=== PATIENT | female | born 1990 | race African-American/Black ===

== ENCOUNTER 2019-01-14 20:24 | Emergency (ER) | payer MEDICAID ==
[~2019-01-14] VITALS: Ht 175.3 cm; Wt 72.0 kg
[2019-01-15 00:19] LABS: CLARITY URINE CLEAR (CLEAR); COLOR URINE YELLOW (YELLOW); KETONES URINE 1+ (NEGATIVE); LEUKOCYTE ESTERASE URINE 1+ (NEGATIVE); NITRITE URINE NEGATIVE (NEGATIVE); OCCULT BLOOD URINE NEGATIVE (NEGATIVE); PROTEIN URINE NEGATIVE (NEGATIVE); SPECIFIC GRAVITY URINE 1.008 (1.005-1.030); UROBILINOGEN URINE 0.2 E.U./dL (0.2-1.0)
[2019-01-15 00:19] LABS: BASOPHILS % 0.4 % (0.0-2.0); CHLORIDE 107 mEq/L (98-107); EOSINOPHILS % 0.9 % (0.0-5.0); HEMATOCRIT. 37.9 % (36.0-48.0); HEMOGLOBIN. 12.6 g/dL (12.0-16.0); LYMPHOCYTES % 40.4 % (20.0-50.0); MEAN CORPUSCULAR HEMOGLOBIN 29.3 pg (28.0-32.0); MEAN CORPUSCULAR VOLUME 88.3 fL (81.0-99.0); MEAN PLATELET VOLUME 7.8 fl (7.4-10.4); MONOCYTES % 8.8 % (2.0-8.0); NEUTROPHILS % 49.5 % (40.0-76.0); PLATELET 216 x1000/uL (130-400); RED BLOOD CELL COUNT 4.29 mill/uL (4.2-5.4); RED CELL DISTRIBUTION WIDTH 12.8 % (11.6-14.6)
[2019-01-15 00:25] LABS: ETHANOL BLOOD < 10 mg/dL
[2019-01-15 00:48] LABS: *BARBITURATES SCREEN URINE NEGATIVE (NEGATIVE); *BENZODIAZEPINES SCREEN URINE NEGATIVE (NEGATIVE)
[2019-01-15 00:49] LABS: METHADONE URINE SCREEN NEGATIVE (NEGATIVE)
[2019-01-15 00:50] LABS: *AMPHETAMINES SCREEN URINE NEGATIVE (NEGATIVE); CANNABINOID URINE SCREEN NEGATIVE (NEGATIVE); OPIATES URINE SCREEN NEGATIVE (NEGATIVE); PHENCYCLIDINE URINE SCREEN NEGATIVE (NEGATIVE)
[2019-01-15 00:51] LABS: *COCAINE SCREEN URINE NEGATIVE (NEGATIVE)
[2019-01-15 12:50] VITALS: BP 115/70
== END 2019-01-15 13:15 | disposition home or self-care (01) ==
LOC: ER 20:24
DX: N30.00 Acute cystitis without hematuria (principal); R03.0 Elevated blood-pressure reading, without diagnosis of hypertension; Z63.79 Other stressful life events affecting family and household; Z62.820 Parent-biological child conflict; Z86.59 Personal history of other mental and behavioral disorders
CPT/HCPCS: 36415; 80305; 80320; 81003; 81025; 99283; G0480